=== PATIENT | male | born 2000 | race African-American/Black ===

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

== ENCOUNTER 2021-03-31 17:12 | Emergency (ER) | payer OTHER ==
[2021-03-31 17:21] VITALS: BMI 24.3
[2021-03-31] MEDS ORDERED: ACETAMINOPHEN 1000 MG/100 ML VIAL (NON FORMULARY) IVPB ONE (17:30)
[2021-03-31] MEDS ORDERED: SODIUM CHLORIDE 1,000 ML IV STA (17:30)
[2021-03-31] MEDS ORDERED: ACETAMINOPHEN INJECTION 100 ML IVPB ONE ×2 (17:40→17:43)
[2021-03-31 18:33] LABS: BASO % 0.3 % (0-2.0); EOS % 0.1 % (0-4.5); HEMATOCRIT 43.6 % (32.4-45.2); HEMOGLOBIN 15.4 GM/dL (10.7-15.3); LYMPH % 7.2 % (8-40); MCH 33.1 pg (25.7-33.7); MCHC 35.3 g/dl (32.0-36.0); MEAN CELL VOLUME 93.7 fl (80-96); MEAN PLT VOLUME 8.5 fl (7.5-11.1); MONO % 13.5 % (3.8-10.2); NEUT % 78.9 % (42.8-82.8); PLATELET COUNT 227 10^3/uL (134-434); RBC 4.65 M/mm3 (3.60-5.2); RDW 12.7 % (11.6-15.6)
[2021-03-31 18:48] LABS: EPI CELLS 25 /uL (0-25.1); HYALINE CASTS 1 /uL (0-3.1); PH,URINE 8.5 (5.0-8.0); URINE APPEARANCE CLEAR; URINE BACTERIA 90 /uL (0-1359); URINE BILIRUBIN 1+ (NEGATIVE); URINE COLOR DK YELLOW; URINE GLUCOSE (UA) NEGATIVE (NEGATIVE); URINE KETONE 2+ (NEGATIVE); URINE LEUK ESTERASE 1+ (NEGATIVE); URINE NITRITE NEGATIVE (NEGATIVE); URINE PROTEIN 1+ (NEGATIVE); URINE RBC 6 /uL (0-23.9); URINE WBC 37 /uL (0-25.8)
[2021-03-31 18:55] LABS: CALCIUM 9.3 mg/dL (8.5-10.1)
[2021-03-31 18:56] LABS: ALBUMIN 4.2 g/dl (3.4-5.0); BLOOD UREA NITROGEN 11.8 mg/dL (7-18)
[2021-03-31 18:59] LABS: CREATININE 1.1 mg/dL (0.55-1.3)
[2021-03-31 19:01] LABS: BILIRUBIN,TOTAL 1.2 mg/dL (0.2-1); TOT PROT 7.5 g/dl (6.4-8.2)
[2021-03-31] MEDS ORDERED: AMPICILLIN NA/SULBACTAM NA 3 GM in SODIUM CHLORIDE 100 ML IVPB ONE (19:03)
[2021-03-31 20:40] VITALS: BP 120/60; PULSE 104; TEMP 99.6
== END 2021-03-31 21:00 | disposition home or self-care (01) ==
LOC: JER 17:12
PROC: 3E03329 Introduction of Other Anti-infective into Peripheral Vein, Percutaneous Approach (ICD-10-PCS; principal; 2021-03-31)
PROC: 3E033NZ Introduction of Analgesics, Hypnotics, Sedatives into Peripheral Vein, Percutaneous Approach (ICD-10-PCS; 2021-03-31)
PROC: 3E0337Z Introduction of Electrolytic and Water Balance Substance into Peripheral Vein, Percutaneous Approach (ICD-10-PCS; 2021-03-31)
DX: R07.0 Pain in throat (principal)
CPT/HCPCS: 36415; 80053; 81003; 85025; 87086; 87880; 99285-25; C9803; J0131; U0003; U0005

== ENCOUNTER 2021-08-14 04:48 | Emergency (ER) | payer OTHER ==
[2021-08-14 05:17] VITALS: BP 135/79; PULSE 86; TEMP 97.9; BMI 24.3
[2021-08-14 07:17] LABS: URINE APPEARANCE CLEAR; URINE BILIRUBIN NEGATIVE (NEGATIVE); URINE COLOR YELLOW; URINE GLUCOSE (UA) NEGATIVE (NEGATIVE); URINE KETONE NEGATIVE (NEGATIVE); URINE LEUK ESTERASE NEGATIVE (NEGATIVE); URINE NITRITE NEGATIVE (NEGATIVE); URINE PROTEIN NEGATIVE (NEGATIVE)
[2021-08-14 07:42] LABS: SYPHILIS W/ RPR CONF NON-REACTIVE (NONREACTIVE)
[2021-08-14 08:11] LABS: HIV INTERPRETATION NEGATIVE (NEGATIVE)
== END 2021-08-14 06:53 | disposition home or self-care (01) ==
LOC: JER 04:48
DX: R36.9 Urethral discharge, unspecified (principal); Z11.3 Encounter for screening for infections with a predominantly sexual mode of transmission
CPT/HCPCS: 36415; 81003; 86780; 87086; 87389; 87491; 87529; 87591; 99283-25